=== PATIENT | female | born 1960 | race Caucasian/White ===

== ENCOUNTER 2017-07-19 12:59 | Emergency (ER) | payer MEDICARE ==
[2017-07-19 14:37] LABS: BASO % 0.3 % (0-6); EOS % 4.5 % (0-6); GRAN % 68.3 % (47-80); HEMOGLOBIN 13.1 gm/dl (11.6-16.0); LYMPH % 16.8 % (16-45); MEAN CORPUSCULAR HEMOGLOBIN 29.9 pg (27-33); MEAN CORPUSCULAR HGB CONC 33.6 g/dl (32-36); MEAN PLATELET VOLUME 9.9 fl (7.4-10.4); MONO % 10.1 % (0-9); PLATELET COUNT 226 K/uL (130-400); RED BLOOD COUNT 4.38 M/uL (3.80-5.40); WHITE BLOOD COUNT W/O DIFF 5.8 K/uL (4.2-12.2)
--- NOTE | 2017-07-19 14:49 | Emergency Department Record ---
History of Present Illness - General Chief Complaint: Back Pain/Injury Stated Complaint: BACK PAIN Time Seen by Provider: 07/19/17 13:21 Source: Patient Mode of Arrival: Ambulatory Limitations: No limitations - History of Present Illness Initial Comments: pt has multiple complaints. she is congested, has dizziness, ear pain , abd pain and back pain. she has been to other eds for this same list. MD Complaint: Back pain, Other Onset/Timin -: Week(s) Similar Symptoms Previously: Yes Context: Unknown Associated Symptoms: Nausea/vomiting - Related Data Previous Rx's Medication Instructions Recorded Azithromycin [Zithromax] 250 mg PO DAILY #6 tab 07/19/17 Allergies Allergy/AdvReac Type Severity Reaction Status Date / Time ketamine Allergy DIFFICULTY Verified 07/19/17 13:24 BREATHING codeine AdvReac NAUSEA Verified 07/19/17 13:24 Travel Screening - Travel/Exposure Within Last 30 Days Have you traveled within the last 30 days?: Yes Location Detail:: [place] - Travel/Exposure Within Last Year Have you traveled outside the [place] in the last year?: No - Additonal Travel Details Have you been exposed to anyone with a communicable illness?: No - Travel Symptoms Symptom Screening: None Review of Systems Reviewed: No additional complaints except as noted below Constitutional: Reports: As per HPI. Denies: Chills, Fever, Malaise, Night sweats, Weakness, Weight change Eyes: Reports: As per HPI. Denies: Eye discharge, Eye pain, Photophobia, Vision change ENT: Reports: As per HPI. Denies: Congestion, Dental pain, Ear pain, Epistaxis , Hearing loss, Throat pain Respiratory: Reports: As per HPI. Denies: Cough, Dyspnea, Hemoptysis, Stridor, Wheezes Cardiovascular: Reports: As per HPI. Denies: Arrhythmia, Chest pain, Dyspnea on exertion, Edema, Murmurs, Orthopnea, Palpitations, Paroxysmal nocturnal dyspnea, Rheumatic Fever, Syncope Endocrine: Reports: As per HPI. Denies: Fatigue, Heat or cold intolerance, Polydipsia, Polyuria Gastrointestinal: Reports: As per HPI. Denies: Abdominal pain, Constipation, Diarrhea, Hematemesis, Hematochezia, Melena, Nausea, Vomiting Genitourinary: Reports: As per HPI. Denies: Abnormal menses, Discharge, Dyspareunia, Dysuria, Frequency, Hematuria, Incontinence, Retention, Urgency Musculoskeletal: Reports: As per HPI. Denies: Arthralgia, Back pain, Gout, Joint swelling, Myalgia, Neck pain Skin: Reports: As per HPI. Denies: Bruising, Change in color, Change in hair/ nails, Lesions, Pruritus, Rash Neurological: Reports: As per HPI. Denies: Abnormal gait, Confusion, Headache, Numbness, Paresthesias, Seizure, Tingling, Tremors, Vertigo, Weakness Psychiatric: Reports: As per HPI. Denies: Anxiety, Auditory hallucinations, Depression, Homicidal thoughts, Suicidal thoughts, Visual hallucinations Hematological/Lymphatic: Reports: As per HPI. Denies: Anemia, Blood Clots, Easy bleeding, Easy bruising, Swollen glands Past Medical History - SOCIAL HISTORY Smoking Status: Current every day smoker Alcohol Use: Rare Drug Use: None - RESPIRATORY Hx Respiratory Disorders: No - CARDIOVASCULAR Hx Cardio Disorders: No - NEURO Hx Neuro Disorders: No - GI Hx GI Disorders: No - Hx Genitourinary Disorders: No - ENDOCRINE Hx Endocrine Disorders: No - MUSCULOSKELETAL Hx Musculoskeletal Disorders: No - PSYCH Hx Psych Problems: No - HEMATOLOGY/ONCOLOGY Hx Hematology/Oncology Disorders: No Family Medical History Any Significant Family History?: No Physical Exam - General General Appearance: Alert, Oriented x3, Cooperative, No acute distress - Head Head exam: Normal inspection - Eye Eye exam: Normal appearance, PERRL, EOMI Pupils: Normal accommodation - ENT ENT exam: Normal exam, Mucous membranes moist, Normal external ear exam, Normal orophraynx Ear exam: Normal external inspection. negative: External canal tenderness Nasal Exam: Normal inspection. negative: Discharge, Sinus tenderness Mouth exam: Normal external inspection, Tongue normal Teeth exam: Normal inspection. negative: Dental caries Throat exam: Normal inspection. negative: Tonsillar erythema, Tonsillar exudate - Neck Neck exam: Normal inspection, Full ROM. negative: Tenderness - Respiratory Respiratory exam: Normal lung sounds bilaterally. negative: Respiratory distress - Cardiovascular Cardiovascular Exam: Regular rate, Normal rhythm, Normal heart sounds - GI/Abdominal GI/Abdominal exam: Soft, Normal bowel sounds. negative: Tenderness - Rectal Rectal exam: Deferred - exam: Deferred - Extremities Extremities exam: Normal inspection, Full ROM, Normal capillary refill. negative: Tenderness - Back Back exam: Reports: Normal inspection, Full ROM. Denies: Muscle spasm, Rash noted, Tenderness - Neurological Neurological exam: Alert, CN II-XII intact, Normal gait, Oriented X3 - Psychiatric Psychiatric exam: Normal affect, Normal mood - Skin Skin exam: Dry, Intact, Normal color, Warm Course Vital Signs 07/19/17 13:25 Temperature 98.1 F Pulse Rate 73 Respiratory 18 Rate Blood Pressure 108/63 Pulse Ox 96 Medical Decision Making - Lab Data Result diagrams: 07/19/17 14:30 07/19/17 14:30 Disposition Disposition: Discharge Clinical Impression: Elevated liver enzymes Otitis media Qualifiers: Otitis media type: suppurative Chronicity: acute Laterality: right Recurrence: not specified as recurrent Spontaneous tympanic membrane rupture: without spontaneous rupture Qualified Code(s): H66.001 - Acute suppurative otitis media without spontaneous rupture of ear drum, right ear Disposition: Home, Self-Care Condition: (1) Good Instructions: Otitis Media (ED) Additional Instructions: follow up with family doctor. have liver enzymes rechecked. return sooner if worse. Prescriptions: Azithromycin [Zithromax] 250 mg PO DAILY #6 tab Forms: Patient Portal Access Quality - Quality Measures Quality Measures: N/A - Blood Pressure Screening Does Patient Have Any of the Following: No Blood Pressure Classification: Normal BP Reading Systolic Measurement: 108 Diastolic Measurement: 63 Screening for High Blood Pressure: < Normal BP, F/U Not Required > [G8783]
[2017-07-19 14:55] LABS: BLOOD UREA NITROGEN 13 mg/dL (6-20); CREATININE 0.5 mg/dL (0.5-0.9); EST GLOMERULAR FILTRATION RATE > 60 mL/min
[2017-07-19 14:56] LABS: TOTAL PROTEIN 6.5 g/dL (6.6-8.7)
[2017-07-19 14:58] LABS: GLUCOSE,RANDOM 109 mg/dL (74-109)
[2017-07-19 15:00] LABS: ALT/SGPT 109 U/L (<33); AST/SGOT 57 U/L (10.0-35.0)
[2017-07-19 15:01] LABS: ALB/GLOB RATIO 1.5 (1.1-1.8); ALBUMIN 3.9 g/dL (4.0-5.0); ALKALINE PHOSPHATASE 195 U/L (35-104); LIPASE 13 U/L (13-60)
[2017-07-19 15:32] LABS: URINE APPEARANCE CLEAR; URINE BILIRUBIN NEGATIVE (NEGATIVE); URINE BLOOD NEGATIVE (NEGATIVE); URINE COLOR YELLOW; URINE GLUCOSE (UA) NEGATIVE (NEGATIVE); URINE KETONE NEGATIVE (NEGATIVE); URINE LEUKOCYTE ESTERASE NEGATIVE (NEGATIVE); URINE NITRITE NEGATIVE (NEGATIVE); URINE PROTEIN NEGATIVE (NEGATIVE); URINE UROBILINOGEN 0.2 E.U./dL (0.20 - 1.00)
--- NOTE | 2017-07-21 13:16 | CT SCAN REPORT ---
EXAM: CT OF THE HEAD WITHOUT IV CONTRAST HISTORY: LEFT EAR PRESSURE, STRANGE SMELL AND TASTE. TECHNIQUE: Helical CT scan of the head was obtained without intravenous contrast. Comparison: None. Hand dominance: Left. FINDINGS: No evidence of hemorrhage, extraaxial fluid collection, or major vessel infarction. The [place] white matter differentiation is maintained. The ventricles are normal. The basal cisterns are patent. No mass effect or midline shift. The calvarium shows no abnormality. There is soft tissue thickening of the maxillary sinuses and ethmoid air cells. The middle ear cavities are well aerated. IMPRESSION: 1. NO ACUTE INTRACRANIAL ABNORMALITY. 2. CHRONIC INFLAMMATORY CHANGES IN THE MAXILLARY AND ETHMOID SINUSES. JOB NUMBER: [id number] MTDD
== END 2017-07-19 17:17 | disposition home or self-care (01) ==
LOC: ER 12:59
DX: H66.001 Acute suppurative otitis media without spontaneous rupture of ear drum, right ear (principal); R94.5 Abnormal results of liver function studies; R11.2 Nausea with vomiting, unspecified; R42 Dizziness and giddiness; R10.9 Unspecified abdominal pain; M54.9 Dorsalgia, unspecified; F17.210 Nicotine dependence, cigarettes, uncomplicated
CPT/HCPCS: 70450; 80053; 81003; 83690; 85025; 99283; 99284